=== PATIENT | female | born 1960 | race Caucasian/White ===

== ENCOUNTER → 2019-12-31 18:00 | Outpatient (CLI) | payer BC, SELFPAY ==
[2019-12-31 10:23] VITALS: BMI 24.3
== END ==
PROVIDERS: Referring Provider Physician Assistant; Visit Provider Physician Assistant
DX: Z03.818 Encounter for observation for suspected exposure to other biological agents ruled out (principal)
CPT/HCPCS: 87635; C9803; U0003